=== PATIENT | male | born 1980 | race Caucasian/White ===

== ENCOUNTER 2017-12-09 20:43 | Emergency (ER) | payer BC ==
[~2017-12-09] VITALS: Ht 177.8 cm; Wt 90.0 kg
[~2017-12-09 20:43] MED LIST: NICORETTE4 M1 MM; ZOFRAN 4MG T4 MG/TAB PO
[2017-12-09 20:46] VITALS: TEMP 97
[2017-12-09] MEDS ORDERED: CEPHALEXIN500 M1 PO (21:57)
[2017-12-09 22:16] VITALS: BP 122/76; PULSE 72
== END 2017-12-09 22:20 | disposition home or self-care (01) ==
LOC: COL.ER 20:43
DX: S61.012A Laceration without foreign body of left thumb without damage to nail, initial encounter (principal); S66.902A Unspecified injury of unspecified muscle, fascia and tendon at wrist and hand level, left hand, initial encounter; F17.210 Nicotine dependence, cigarettes, uncomplicated; Z90.89 Acquired absence of other organs; Z98.890 Other specified postprocedural states; Z88.0 Allergy status to penicillin; W26.8XXA Contact with other sharp object(s), not elsewhere classified, initial encounter
CPT/HCPCS: Q4021